=== PATIENT | female | born 1960 | race Caucasian/White ===

== ENCOUNTER 2016-08-02 02:27 | Inpatient (IN) | payer MEDICAID ==
[~2016-08-02] VITALS: Ht 167.6 cm; Wt 70.0 kg
[~2016-08-02 02:27] MED LIST: ALBU2.5V NPPB; ALBU6.7H INH; ASPI325T4 PO; AZIT500T77 PO; CEFD300C37 PO; DOXY100T PO; FERR324T5 PO; FLUC200T PO; GABA300C10 PO; GUAI-44 PO; HYDR-3138 PO; INSU100C5 SQ-INSULIN; INSU100I28 SC; INSU100I28 SQ; INSU100I28 SQ-INSULIN; IPRA12.9 INH; LINA5TAB PO; MAGN400T26 PO; METF500T4 PO; MONT10TA6 PO; POLY17PO5 PO; PRED20TA PO; PRED5TAB19 PO; SITA50TA PO; TIOT18CA INH
[2016-08-02] MEDS ORDERED: DEXTROSE 50%, 50ML SYRINGE ONE (02:37)
[2016-08-02] MEDS ORDERED: DEXTROSE 50%, 50ML SYRINGE IVPush ONE (03:00)
[2016-08-02] MEDS ORDERED: SODIUM CHLORIDE FLUSH 10ML SYR IVF ONE (03:00)
[2016-08-02 03:32] LABS: ASPARTATE AMINO TRANSFERASE 19 U/L (15-37); BLOOD UREA NITROGEN 25 mg/dL (7-18)
[2016-08-02] MEDS ORDERED: POTASSIUM CHLORIDE 20 MEQ in D5%-0.45% NACL 1,000 ML IV ONE (03:55)
[2016-08-02] MEDS ORDERED: ONDANSETRON 2MG/ML, 2ML IVPush PRN (04:00)
[2016-08-02] MEDS ORDERED: D5%-0.45NACL+KCL 20MEQ 1,000 ML IV SCH (06:00)
[2016-08-02] MEDS ORDERED: IPRATROPIUM 0.5 MG/2.5 ML INHA NPPB SCH (06:00)
[2016-08-02 07:17] LABS: IS PT STATUS REG ER OR PRE ER? YES
[2016-08-02 08:08] VITALS: BP 134/83
[2016-08-02] MEDS ORDERED: ALBUTEROL/IPRATROPIUM 2.5MG/0.5MG, 3 ML NPPB PRN (09:00)
[2016-08-02] MEDS: ENOXAPARIN 40 MG/0.4 ML SQ SCH (10:30)
[2016-08-02] MEDS ORDERED: ACETAMINOPHEN 325 MG TABLET PO PRN (11:30)
[2016-08-02 12:31] LABS: BLOOD UREA NITROGEN 15 mg/dL (7-18)
[2016-08-02 12:42] LABS: IS PT STATUS REG ER OR PRE ER? NO
[2016-08-02] MEDS: HYDROcodone/APAP 5/325 TABLET PO PRN ×2 (12:44→20:38)
[2016-08-02 13:52] VITALS: BP 129/78
[2016-08-02 18:17] LABS: IS PT STATUS REG ER OR PRE ER? NO
[2016-08-02 20:50] VITALS: BP 117/68
[2016-08-03 02:53] VITALS: BP 94/62
[2016-08-03 06:52] LABS: ASPARTATE AMINO TRANSFERASE 19 U/L (15-37); BLOOD UREA NITROGEN 13 mg/dL (7-18)
[2016-08-03] MEDS ORDERED: INSU100V5 SQ-INSULIN (07:33)
[2016-08-03 07:37] VITALS: BP 130/76
[2016-08-03] MEDS: ENOXAPARIN 40 MG/0.4 ML SQ SCH (08:49)
== END 2016-08-03 11:30 | disposition home or self-care (01) | DRG 637 ==
LOC: ED 03:58 → EDIP 04:00 → SUATTDRO 04:25 → 4EST 07:27
PROVIDERS: ADMIT Internal Medicine; ATTEND Internal Medicine
DX: E11.649 Type 2 diabetes mellitus with hypoglycemia without coma (principal); E43 Unspecified severe protein-calorie malnutrition; G93.41 Metabolic encephalopathy; J96.10 Chronic respiratory failure, unspecified whether with hypoxia or hypercapnia; D50.9 Iron deficiency anemia, unspecified; D63.8 Anemia in other chronic diseases classified elsewhere; E87.6 Hypokalemia; J84.10 Pulmonary fibrosis, unspecified; Z91.19 Patient's noncompliance with other medical treatment and regimen; E11.40 Type 2 diabetes mellitus with diabetic neuropathy, unspecified; E11.65 Type 2 diabetes mellitus with hyperglycemia; Z99.81 Dependence on supplemental oxygen; Z68.24 Body mass index [BMI] 24.0-24.9, adult
CPT/HCPCS: 36415; 71010; 80048; 80053; 81003; 82140; 82962; 83036; 83735; 84100; 84439; 84443; 84484; 85025; 93005; 93306; 95819; 96365; 96366; 96375; J1650; J2405; J3480

== ENCOUNTER 2017-04-07 18:37 | Emergency (ER) | payer MEDICAID ==
[~2017-04-07] VITALS: Ht 154.9 cm; Wt 49.0 kg
[~2017-04-07 18:37] MED LIST changes: +ASPI325T17 PO; -ASPI325T4 PO; +AZIT500T5 PO; -AZIT500T77 PO; +GUAI-106 PO; -GUAI-44 PO; -HYDR-3138 PO; +HYDR-3237 PO; +INSU100V5 SQ-INSULIN
[2017-04-07 18:48] VITALS: BP 114/70
[2017-04-07] MEDS ORDERED: HYDROcodone/APAP 5/325 TABLET PO STA (19:43)
[2017-04-07] MEDS ORDERED: ONDANSETRON ODT 4 MG ONE (19:46)
[2017-04-07] MEDS ORDERED: HYDROcodone/APAP 5/325 TABLET ONE (19:46)
[2017-04-07] MEDS: ONDANSETRON ODT 4 MG PO ONE ×2 (19:47→19:49)
== END 2017-04-07 20:30 | disposition home or self-care (01) ==
LOC: ED 20:24
DX: K02.9 Dental caries, unspecified (principal); E11.9 Type 2 diabetes mellitus without complications
CPT/HCPCS: 99283; Q0162